=== PATIENT | male | born 1995 | race Caucasian/White ===

== ENCOUNTER 2018-03-03 15:51 | Emergency (ER) | payer OTHER ==
[2018-03-03 16:01] VITALS: BP 115/73; RESP 20; TEMP 97.3; O2SAT 96
--- NOTE | 2018-03-03 16:24 | ED PDOC ---
HPI: Allergic Reaction Time Seen by Provider: 03/03/18 15:58 Chief Complaint (Nursing): Allergic Reaction Chief Complaint (Provider): Allergic Reaction History Per: Patient History/Exam Limitations: no limitations Onset/Duration Of Symptoms: Days (x1) Current Symptoms Are (Timing): Still Present Possible Cause: Unknown Associated Symptoms: Skin Rash, Itching Additional Complaint(s): Rahel Barboza is a 22 year old male, with no significant past medical history, who presents to the emergency department complaining of an itchy rash to arms, legs and body onset yesterday at 20:00. Patient states he had no new drinks, foods, clothes or detergents. He reports taking a pill but doesn't recall the name. He denies any chest pain, shortness of breath, nausea, vomit, diarrhea, abdominal pain, cough, congestion, throat swelling or known exposures. No further medical complaints. PMD: None provided. Past Medical History Reviewed: Historical Data, Nursing Documentation, Vital Signs Vital Signs: Last Vital Signs Temp 97.3 F L 03/03/18 15:58 Pulse 115 H 03/03/18 15:58 Resp 20 03/03/18 15:58 BP 115/73 03/03/18 15:58 Pulse Ox 96 03/03/18 15:58 - Medical History PMH: Asthma - Surgical History Surgical History: Appendectomy - Family History Family History: States: Unknown Family Hx - Social History Current smoker - smoking cessation education provided: No Alcohol: Social Drugs: Denies - Home Medications Home Medications: Ambulatory Orders Medication Instructions Recorded DiphenhydrAMINE [Benadryl] 25 mg PO TID PRN 5 Days cap 03/03/18 predniSONE [predniSONE Tab] 20 mg PO BID 5 Days tab 03/03/18 - Allergies Allergies/Adverse Reactions: Allergies Allergy/AdvReac Type Severity Reaction Status Date / Time No Known Allergies Allergy Verified 03/03/18 15:58 Review of Systems ROS Statement: Except As Marked, All Systems Reviewed And Found Negative ENT: Negative for: Nose Congestion, Throat Swelling Cardiovascular: Negative for: Chest Pain Respiratory: Negative for: Cough, Shortness of Breath Gastrointestinal: Negative for: Nausea, Vomiting, Abdominal Pain, Diarrhea Skin: Positive for: Rash (itchy to arms, legs and body) Physical Exam - Reviewed Nursing Documentation Reviewed: Yes Vital Signs Reviewed: Yes - Physical Exam Appears: Positive for: No Acute Distress Head Exam: Positive for: ATRAUMATIC, NORMAL INSPECTION, NORMOCEPHALIC Skin: Positive for: Normal Color, Warm, Dry, Rash (Nontender blanching erythematous hives in urticarial pattern scattered to arms, lower legs, upper chest, lower back and face. No induration or drainage. No rash to palms and soles.) Eye Exam: Positive for: Normal appearance, EOMI, PERRL ENT: Positive for: Normal ENT Inspection, Pharynx Is (clear) Neck: Positive for: Normal, Painless ROM Cardiovascular/Chest: Positive for: Regular Rate, Rhythm. Negative for: Murmur Respiratory: Positive for: Normal Breath Sounds. Negative for: Respiratory Distress Gastrointestinal/Abdominal: Positive for: Normal Exam, Soft. Negative for: Tenderness, Guarding, Rebound Back: Positive for: Normal Inspection. Negative for: L CVA Tenderness, R CVA Tenderness, Vertebral Tenderness Extremity: Positive for: Normal ROM (upper and lower extremities). Negative for: Tenderness, Deformity, Swelling Neurologic/Psych: Positive for: Alert, Oriented - ECG O2 Sat by Pulse Oximetry: 96 (RA) Pulse Ox Interpretation: Normal Disposition - Clinical Impression Clinical Impression: Allergic reaction - Disposition Referrals: [facility] [Outside] - 03/06/18 Condition: STABLE Additional Instructions: Return if not better in 3 days. Prescriptions: DiphenhydrAMINE [Benadryl] 25 mg PO TID PRN 5 Days cap PRN Reason: Itching / Pruritus predniSONE [predniSONE Tab] 20 mg PO BID 5 Days tab Instructions: Hives Forms: Plair ([place] Islander) Medical Decision Making Medical Decision Making: Time: 15:58 Initial Impression: Allergic reaction Initial Plan: --Benadryl 25 mg PO --PredniSONE Oral Soln 60 mg PO --Reevaluation Scribe Attestation: Documented by Fabien Galilea, acting as a scribe for Harpreet Sanchez MD Provider Scribe Attestation: All medical record entries made by the Scribe were at my direction and personally dictated by me. I have reviewed the chart and agree that the record accurately reflects my personal performance of the history, physical exam, medical decision making, and the department course for this patient. I have also personally directed, reviewed, and agree with the discharge instructions and disposition.
[2018-03-03 16:37] VITALS: PULSE 89
== END 2018-03-03 16:33 | disposition home or self-care (01) ==
LOC: H.ER 15:51
DX: T78.40XA Allergy, unspecified, initial encounter (principal); J45.909 Unspecified asthma, uncomplicated

== ENCOUNTER 2018-03-04 23:52 | Emergency (ER) | payer SELFPAY ==
[2018-03-05 00:59] VITALS: RESP 20; O2SAT 100
[2018-03-05] MEDS ORDERED: DiphenhydrAMINE 50 mg/ml Inj IV STA (01:37)
[2018-03-05] MEDS ORDERED: Albuterol 0.083% Inhal Sol (2.5 mg/3 mL) UD INH STA (01:38)
[2018-03-05] MEDS ORDERED: DiphenhydrAMINE 50 mg/ml Inj ONE (01:54)
[2018-03-05] MEDS ORDERED: Albuterol 0.083% Inhal Sol (2.5 mg/3 mL) UD ONE (01:55)
--- NOTE | 2018-03-05 02:17 | ED PDOC ---
HPI: Allergic Reaction Time Seen by Provider: 03/05/18 01:28 Chief Complaint (Nursing): Allergic Reaction Chief Complaint (Provider): Allergic Reaction History Per: Patient History/Exam Limitations: no limitations Onset/Duration Of Symptoms: Hrs (captain waiter) Current Symptoms Are (Timing): Still Present Possible Cause: Other (new shampoo) Associated Symptoms: Skin Rash, Dyspnea, Itching, Redness Home/EMS Treatment: Benadryl Additional Complaint(s): Rahel North is a 22 year old male with no past medical history, who presents to the emergency department complaining of diffuse uticaria, onset earlier today. Patient states that x2 days ago, patient used a new AXE shampoo and noticed to have this rash after. He came to the ED x1 day ago and discharge with prednisone and benadryl. He states that symptoms improved initially but came back today prompting him to come to the ED. Patient states that his rash is itchy and it is throughout his body. He is also complaining of x1 episode of diarrhea today, chills and states that he has had some coughing. Patient further states that x3 hours ago he started to have difficulty breathing. He also reports that he did not use his AXE shampoo today. Patient states that he is not allergic to nuts and eats them frequently and that he is not aware of any allergy to seafood or berries, nor has he had some recently. Patient denies any travel, fever, vomiting or runny nose. PMD: no provider Past Medical History Reviewed: Historical Data, Nursing Documentation, Vital Signs Vital Signs: Last Vital Signs Temp 98.0 F 03/05/18 00:57 Pulse 109 H 03/05/18 00:57 Resp 20 03/05/18 00:57 BP 127/76 03/05/18 00:57 Pulse Ox 100 03/05/18 00:57 - Medical History PMH: Asthma - Surgical History Surgical History: Appendectomy - Family History Family History: States: Unknown Family Hx - Home Medications Home Medications: Ambulatory Orders Medication Instructions Recorded DiphenhydrAMINE [Benadryl] 25 mg PO TID PRN 5 Days cap 03/03/18 RX: predniSONE [predniSONE Tab] 20 mg PO BID 5 Days tab 03/05/18 - Allergies Allergies/Adverse Reactions: Allergies Allergy/AdvReac Type Severity Reaction Status Date / Time No Known Allergies Allergy Verified 03/05/18 00:56 Review of Systems ROS Statement: Except As Marked, All Systems Reviewed And Found Negative Constitutional: Positive for: Chills. Negative for: Fever ENT: Negative for: Nose Discharge Respiratory: Positive for: Cough, Other (dyspnea) Gastrointestinal: Positive for: Diarrhea. Negative for: Vomiting Skin: Positive for: Rash (itchy hives (diffuse) ) Physical Exam - Reviewed Nursing Documentation Reviewed: Yes Vital Signs Reviewed: Yes - Physical Exam Appears: Positive for: Uncomfortable Skin: Positive for: Rash (hives; diffuse uticaria, erythema ) ENT: Positive for: Normal ENT Inspection Cardiovascular/Chest: Positive for: Regular Rate, Rhythm. Negative for: Murmur Respiratory: Positive for: Normal Breath Sounds. Negative for: Wheezing, Respiratory Distress Gastrointestinal/Abdominal: Positive for: Normal Exam, Soft. Negative for: Tenderness Neurologic/Psych: Positive for: Alert, Oriented - Laboratory Results Result Diagrams: 03/05/18 02:00 03/05/18 02:00 - ECG O2 Sat by Pulse Oximetry: 100 (RA) Pulse Ox Interpretation: Normal - Progress Re-evaluation Time: 03:00 Condition: Re-examined, Improved Disposition - Clinical Impression Clinical Impression: Hay fever, Allergic reaction - Patient ED Disposition Is Patient to be Admitted: No Doctor Will See Patient In The: Office Counseled Patient/Family Regarding: Studies Performed, Diagnosis, Need For Followup - Disposition Referrals: [facility] [Outside] Disposition: Routine/Home Disposition Time: 03:00 Condition: GOOD Additional Instructions: RAHEL NORTH, thank you for letting us take care of you today. Your provider was Marky Munoz MD and you were treated for FOLLOW UP,SKIN ABNORMALITY. The emergency medical care you received today was directed at your acute symptoms. If you were prescribed any medication, please fill it and take as directed. It may take several days for your symptoms to resolve. Return to the Emergency Department if your symptoms worsen, do not improve, or if you have any other problems. Please contact your doctor or call one of the physicians/clinics you have been referred to that are listed on the Patient Visit Information form that is included in your discharge packet. Bring any paperwork you were given at [facility] with you along with any medications you are taking to your follow up visit. Our treatment cannot replace ongoing medical care by a primary care provider outside of the emergency department. Thank you for allowing the [facility] team to be part of your care today. If you had an X-Ray or CT scan: A Radiologist will review the ED reading if any change in treatment is needed we will contact you. If you had a blood, urine, or wound culture: It will take several days for the results, if any change in treatment is needed we will contact you. If you had an STI test: It will take 48 hours for the results. Please call after 1 week if you have not heard back. Prescriptions: RX: predniSONE [predniSONE Tab] 20 mg PO BID 5 Days tab Instructions: Nate (ELICEO) Medical Decision Making Medical Decision Making: Time: 136 Impression: allergic reaction; uticaria Plan: --BMP --CBC with differential --Albuterol 2.5 mg INH --Benadryl 25 mg IV --Pepcid 20 mg IVP --Medrol 125 mg IVP --Peak flow pre/post tx --influenza A B Scribe Attestation: Documented by Blane Phillips, acting as a scribe for Marky Munoz MD. Provider Scribe Attestation: All medical record entries made by the Scribe were at my direction and personally dictated by me. I have reviewed the chart and agree that the record accurately reflects my personal performance of the history, physical exam, medical decision making, and the department course for this patient. I have also personally directed, reviewed, and agree with the discharge instructions and disposition.
[2018-03-05 02:30] LABS: BASO % 0.2 % (0.0-2.0); EOS % 0.1 % (0.0-4.0); HEMOGLOBIN 14.3 g/dL (12.0-18.0); LYMPH # 1.4 K/uL (1.0-4.3); MEAN CELL VOLUME 94.5 fl (80.0-94.0); MEAN CORPUSCULAR HEMOGLOBIN 31.4 pg (27.0-31.0); MEAN CORPUSCULAR HGB CONC 33.2 g/dL (33.0-37.0); MEAN PLATELET VOLUME 9.3 fl (7.2-11.7); MONO # 1.4 K/uL (0.0-0.8); MONO % 7.9 % (0.0-10.0); NEUT % 83.8 % (50.0-75.0); NRBC % 0.1 % (0.0-0.0); PLATELET COUNT 194 K/uL (130-400); RBC 4.55 Mil/uL (4.40-5.90); RED CELL DISTRIBUTION WIDTH 12.9 % (11.5-14.5)
[2018-03-05 02:39] LABS: BLOOD UREA NITROGEN 21 mg/dl (9-20); CALCIUM 9.2 mg/dL (8.4-10.2); GFR NON-AFRICAN AMERICAN > 60
[2018-03-05 03:11] VITALS: BP 118/72; PULSE 113; TEMP 99.2
[2018-03-05 03:55] LABS: LYMPHOCYTE 8 % (20-50); MONOCYTE 5 % (0-10); NEUTROPHIL 87 % (42-75); PLATELET ESTIMATE NORMAL (NORMAL); TOTAL CELLS COUNTED 100
== END 2018-03-05 03:18 | disposition home or self-care (01) ==
LOC: H.ER 23:52
DX: T78.40XA Allergy, unspecified, initial encounter (principal); J30.1 Allergic rhinitis due to pollen
CPT/HCPCS: 80048; 85025; 87804; 96374; 96375; 99283; J1200; J2930